=== PATIENT | female | born 1985 | race Caucasian/White ===

== ENCOUNTER 2021-02-01 12:33 | Emergency (ER) | payer OTHER ==
[2021-02-01 13:16] LABS: BASOPHILS % (AUTO) 0.3 %; EOSINOPHILS # (AUTO) 0.2 10^3/uL (0.0-0.7); EOSINOPHILS % (AUTO) 3.5 %; HCT - HEMATOCRIT 41.6 % (37.0-47.0); LYMPHOCYTES # (AUTO) 2.8 10^3/uL (1.5-3.5); LYMPHOCYTES % (AUTO) 43.1 %; MEAN CORPUSCULAR HEMOGLOBIN 29.1 pg (27.0-31.0); MEAN CORPUSCULAR HGB CONC 33.7 g/dL (32.0-36.0); MEAN CORPUSCULAR VOLUME 86.5 fL (81.0-99.0); MEAN PLATELET VOLUME 8.6 fL (7.9-10.8); MONOCYTES # (AUTO) 0.4 10^3/uL (0.0-1.0); MONOCYTES % (AUTO) 6.3 %; NEUTROPHILS % (AUTO) 46.6 %; PLT - PLATELET COUNT 253 10^3/uL (130-450); RED BLOOD COUNT 4.81 10^6/uL (4.20-5.40); RED CELL DISTRIBUTION WIDTH 12.2 % (12.0-15.0); WHITE BLOOD COUNT 6.5 x10^3/uL (4.8-10.8)
[2021-02-01 13:30] LABS: ALBUMIN 4.7 g/dL (3.2-5.5); ALBUMIN/GLOBULIN RATIO 1.8 (1.0-2.2); BILIRUBIN,TOTAL 0.8 mg/dL (0.2-1.0); CALCIUM 9.4 mg/dL (8.5-10.3); CREATININE 0.9 mg/dL (0.4-1.0); POTASSIUM 3.8 mmol/L (3.5-5.0); TOTAL PROTEIN 7.3 g/dL (6.7-8.2)
[2021-02-01] MEDS ORDERED: KETOROLAC 60 MG/2 ML VIAL IM STA (14:43)
--- NOTE | 2021-02-01 14:46 | ED Physician Documentation ---
History of Present Illness - Stated complaint Stated Complaint: ABD PX - Chief complaint Chief Complaint: Abd Pain - History obtained from History obtained from: Patient - History of Present Illness Pain level max: 9 Pain level now: 4 - Additonal information Additional information: Patient is a 35-year-old female who presents to the emergency department with a sharp left lower pelvic pain today. This then turned into a dull aching pelvic pain. Rated as a 9 out of 10 max, currently 4 out of 10. Has never had similar symptoms previously. States she is currently on her menses. She denies any STD exposure. No vaginal discharge. Nothing makes it better. Worse with palpation. Has not taken anything for the pain. Review of Systems Constitutional: denies: Fever, Chills Respiratory: denies: Cough GI: reports: Nausea. denies: Vomiting, Diarrhea : denies: Dysuria, Frequency, Hesitancy, Now EGA Skin: denies: Rash Musculoskeletal: denies: Neck pain, Back pain Neurologic: denies: Headache PD PAST MEDICAL HISTORY - Past Medical History Past Medical History: Yes NURSING EDUCATION SPECIALIST: Ectopic , Miscarriage(s) - Past Surgical History Past Surgical History: No - Present Medications Home Medications: Ambulatory Orders Medication Instructions Recorded Confirmed Escitalopram [Lexapro] 10 mg PO DAILY 02/01/21 02/01/21 HYDROcod/ACETAM 5/325 [[place] 5/325] 1 - 2 ea PO Q6H PRN #12 tablet 02/01/21 Meloxicam [Mobic] 7.5 mg PO BID PRN #20 tablet 02/01/21 - Allergies Allergies/Adverse Reactions: Allergies Allergy/AdvReac Type Severity Reaction Status Date / Time No Known Drug Allergies Allergy Verified 02/01/21 12:57 - Social History Does the pt smoke?: No Smoking Status: Never smoker Does the pt drink ETOH?: No Does the pt have substance abuse?: No - Immunizations Immunizations are current?: Yes - POLST Patient has POLST: No PD ED PE NORMAL - Vitals Vital signs reviewed: Yes - General General: Alert and oriented X 3, No acute distress - HEENT HEENT: Moist mucous membranes - Neck Neck: Supple, no meningeal sign - Cardiac Cardiac: RRR - Respiratory Respiratory: No respiratory distress, Clear bilaterally - Abdomen Abdomen: Soft, Non distended, Other (TTP L Low pelvic, no peritoneal signs.) - Back Back: No CVA TTP, No spinal TTP - Derm Derm: Warm and dry, No rash - Extremities Extremities: No edema, No calf tenderness / cord - Neuro Neuro: Alert and oriented X 3 - Psych Psych: Normal mood, Normal affect Results - Vitals Vitals: Vital Signs - 24 hr 02/01/21 02/01/21 02/01/21 12:53 14:32 16:00 Temperature 36.5 C 37.2 C Heart Rate 63 65 61 Respiratory 14 17 Rate Blood Pressure 135/120 H 123/85 H 128/98 H O2 Saturation 100 100 99 Oxygen O2 Source Room air - Labs Labs: Laboratory Tests 02/01/21 02/01/21 02/01/21 13:12 13:12 15:42 WBC 6.5 RBC 4.81 Hgb 14.0 Hct 41.6 MCV 86.5 MCH 29.1 MCHC 33.7 RDW 12.2 Plt Count 253 MPV 8.6 Neut # (Auto) 3.0 Lymph # (Auto) 2.8 [place] # (Auto) 0.4 Eos # (Auto) 0.2 Baso # (Auto) 0.0 Absolute Nucleated RBC 0.00 Nucleated RBC % 0.0 Sodium 140 Potassium 3.8 Chloride 107 Carbon Dioxide 24 Anion Gap 9.0 BUN 11 Creatinine 0.9 Estimated GFR (MDRD) 72 L Glucose 95 Calcium 9.4 Total Bilirubin 0.8 AST 19 ALT 21 Alkaline Phosphatase 51 Total Protein 7.3 Albumin 4.7 Globulin 2.6 Albumin/Globulin Ratio 1.8 Lipase 26 Urine Color YELLOW Urine Clarity CLEAR Urine pH 6.0 Ur Specific [place] 1.020 Urine Protein NEGATIVE Urine Glucose (UA) NEGATIVE Urine Ketones NEGATIVE Urine Occult Blood NEGATIVE Urine Nitrite NEGATIVE Urine Bilirubin NEGATIVE Urine Urobilinogen 0.2 (NORMAL) Ur Leukocyte Esterase NEGATIVE Ur Microscopic Review NOT INDICATED Urine Culture Comments NOT INDICATED - Rads (name of study) pelvic US Radiology: Final report received, EMP read contemporaneously, See rad report (Small amount of free fluid in the right adnexa. Small fundal fibroid is slightly larger than the prior exam, now calcified ) PD MEDICAL DECISION MAKING - ED course Complexity details: reviewed results, re-evaluated patient, considered differential, d/w patient ED course: 35-year-old female with left-sided pelvic pain. History sounds consistent with a ruptured ovarian cyst. There is a small amount of free fluid in the right adnexa. No significant lab abnormalities. Pain well controlled. Patient declines a pelvic exam. We will trial her on pain medication for 24 to 48 hours and see how she progresses. Patient is very well-appearing, nontoxic. We will hold CT scan until all a trial of pain medication has been performed. Patient counseled regarding signs and symptoms for which I believe and urgent re- evaluation would be necessary. Patient with good understanding of and agreement to plan and is comfortable going home at this time This document was made in part using voice recognition software. While efforts are made to proofread this document, sound alike and grammatical errors may occur. Departure - Departure Disposition: Home, Self Care Clinical Impression: Pelvic pain Ovarian cyst Qualifiers: Laterality: unspecified laterality Qualified Code(s): N83.209 - Unspecified ovarian cyst, unspecified side Condition: Good Instructions: ED Cyst Ovarian, ED Pelvic Pain [facility] Follow-Up: your,doctor in 3-4 days if not better. [Other] Prescriptions: Meloxicam [Mobic] 7.5 mg PO BID PRN #20 tablet PRN Reason: Pain HYDROcod/ACETAM 5/325 [[place] 5/325] 1 - 2 ea PO Q6H PRN #12 tablet PRN Reason: Pain Comments: Follow-up with your doctor for further care. Return if you worsen. You should have a repeat ultrasound with about 6 weeks to ensure resolution of the right- sided ovarian cyst. This should improve over the next 1 to 2 days. I am prescribing a short course of narcotic pain medication for you. These are p otentially dangerous and addictive medications that should be used carefully. These medications may constipate you. Take an [id number] stool softener (docusate) twice daily with plenty of water while taking these medications. If you go 24 hours without a bowel movement, take [id number] miralax, per package instructions. Do not drink or drive while taking these medications. If you received narcotic or sedating medications while in the emergency department, do not drive for 24 hours. Store this medication in a safe, secure place and out of reach of children. It is a violation of federal law to give or sell this medication to another person or to use in a manner other than prescribed. The ED will not refill narcotic prescriptions, including prescriptions lost or stolen. To dispose of unwanted medications: 1. [facility] at [address] in [place] has a medication drop box. They accept prescription medications (in pill form) Saturday through Saturday 9:00 a.m. to 5:00 p.m. 2. The [facility] accepts prescription medications (in pill form only) for disposal year round. Call for more informat ion. 3. Contact the [facility] for the next [facility] sponsored prescription drug collection event. , [phone], or [phone]; Discharge Date/Time: 02/01/21 16:48
[2021-02-01 16:00] LABS: BILIRUBIN,URINE NEGATIVE (NEGATIVE); GLUCOSE, URINE (UA) NEGATIVE (NEGATIVE); KETONES,URINE (UA) NEGATIVE (NEGATIVE); LEUKOCYTE ESTERASE, URINE NEGATIVE (NEGATIVE); NITRITE,URINE NEGATIVE (NEGATIVE); OCCULT BLOOD,URINE NEGATIVE (NEGATIVE); PROTEIN,URINE NEGATIVE (NEGATIVE); UROBILINOGEN,URINE 0.2 (NORMAL) E.U./dL (NORMAL)
[2021-02-01 16:03] LABS: CLARITY,URINE CLEAR (CLEAR)
[2021-02-01 16:07] VITALS: BP 128/98
[2021-02-01] MEDS ORDERED: HYDROcod/ACETAM 5/325 MG TABLET PO STA (16:13)
[2021-02-01] MEDS ORDERED: ONDANSETRON ODT 4 MG TABLET TL STA (16:13)
--- NOTE | 2021-02-01 17:54 | Ultrasound Report ---
PROCEDURE: Pelvic w/Transvag+Doppler Comp INDICATIONS: pelvic pain, L TECHNIQUE: Real-time scanning was performed of the pelvic organs, with image documentation. Additional endovagi nal scanning was necessary due to incomplete visualization of the adnexal and endometrial structures by transabdominal scanning. COMPARISON: 08/24/2012 FINDINGS: Small amount of free fluid in the right adnexa. Uterus: Uterus is normal in size at 11.8 x 4.6 x 6.1 cm. The endometrium measures 3 mm in combined thickness. Small myometrial fibroids is noted. First on the left posterior myometrium measures 9 x 1 0 mm it. Second on the right fundal myometrium measures 2.0 x 1.7 x 1.8 cm, previously 1.6 x 1.2 x 1. 4 cm. Shadowing calcification noted, new from the prior. Ovaries: Both ovaries appropriate in size and vascularity. IMPRESSION: Small amount of free fluid in the right adnexa. Small fundal fibroid is slightly larger than the prior exam, now calcified Reviewed by: Pelon Elaine MD on 02/01/2021 4:53 PM AKDT Approved by: Pelon Elaine MD on 02/01/2021 4:53 PM AKDT Station ID: [id number]
== END 2021-02-01 16:48 | disposition home or self-care (01) ==
LOC: ED 12:33
DX: N83.201 Unspecified ovarian cyst, right side (principal)
CPT/HCPCS: 36415; 76830; 76856; 80053; 81003; 83690; 85025; 93975; 96372; 99284; A9270; Q0162; 81001; 87086

== ENCOUNTER 2023-04-24 18:58 | Emergency (ER) | payer OTHER ==
[2023-04-24] MEDS ORDERED: KETOROLAC 30 MG/ML VIAL IVP STA (20:48)
[2023-04-24] MEDS ORDERED: DROPERIDOL 5 MG/2 ML VIAL IVP STA (20:48)
[2023-04-24] MEDS ORDERED: SODIUM CHLORIDE 0.9% 1,000 ML IV STA (20:49)
--- NOTE | 2023-04-24 21:33 | ED Physician Documentation ---
History of Present Illness - Stated complaint Stated Complaint: ALVAREZ/DIZZY/BLURRY VISION/VOMIT - Chief complaint Chief Complaint: Heent - History obtained from History obtained from: Patient, Family - History of Present Illness Timing: Today Pain level max: 9 Pain level now: 9 - Additonal information Additional information: 37-year-old female with a history of migraine headaches presents with a left- sided headache that started today. Worse with light and sound. Better with a dark room. No fevers. No chills. No neurological deficits. No neck pain. No trauma. Gradual in onset. Review of Systems Constitutional: denies: Fever, Chills Eyes: reports: Photophobia Nose: denies: Rhinorrhea / runny nose, Congestion Respiratory: denies: Cough GI: denies: Nausea, Vomiting, Diarrhea : denies: Now EGA Skin: denies: Rash Musculoskeletal: denies: Neck pain, Back pain Neurologic: denies: Headache PD PAST MEDICAL HISTORY - Past Medical History HEALTH INFORMATION CLERK: Ectopic , Miscarriage(s) - Past Surgical History Past Surgical History: No - Present Medications Home Medications: Ambulatory Orders Medication Instructions Recorded Confirmed Escitalopram [Lexapro] 10 mg PO DAILY 02/01/21 04/24/23 HYDROcod/ACETAM 5/325 [[place] 5/325] 1 - 2 ea PO Q6H PRN #12 tablet 02/01/21 Meloxicam [Mobic] 7.5 mg PO BID PRN #20 tablet 02/01/21 - Allergies Allergies/Adverse Reactions: Allergies Allergy/AdvReac Type Severity Reaction Status Date / Time No Known Drug Allergies Allergy Verified 04/24/23 19:16 - Social History Does the pt smoke?: No Smoking Status: Never smoker Does the pt drink ETOH?: No Does the pt have substance abuse?: No - Immunizations Immunizations are current?: Yes - POLST Patient has POLST: No PD ED PE NORMAL - Vitals Vital signs reviewed: Yes - General General: Alert and oriented X 3, No acute distress - HEENT HEENT: Atraumatic, PERRL, EOMI, Moist mucous membranes - Neck Neck: Supple, no meningeal sign - Cardiac Cardiac: RRR, Strong equal pulses - Respiratory Respiratory: No respiratory distress, Clear bilaterally - Abdomen Abdomen: Soft, Non tender, Non distended - Derm Derm: Warm and dry - Extremities Extremities: No edema - Neuro Neuro: Alert and oriented X 3, field education coordinator 2-12 intact, No motor deficit, No sensory deficit, Normal speech Eye Opening: Spontaneous Motor: Obeys Commands Verbal: Oriented GCS Score: 15 - Psych Psych: Normal mood, Normal affect Results - Vitals Vitals: Vital Signs - 24 hr 04/24/23 04/24/23 04/24/23 19:01 20:50 21:49 Temperature 36.7 C 36.8 C Heart Rate 94 74 76 Respiratory 17 16 16 Rate Blood Pressure 137/95 H 134/93 H 138/88 H O2 Saturation 100 99 100 Oxygen O2 Source Room air - EKG (time done) 1911 EKG releavant findings:: EKG personally interpreted by author of this note. Relevant findings are: Rate: Rate (enter#) (91) Rhythm: NSR [place]: Normal Intervals: Normal [place] QRS: Normal Ischemia: Normal ST segments PD Medical Decision Making - ED course Complexity details: re-evaluated patient, considered differential, d/w patient ED course: Patient with what appears to be a migraine headache. No evidence of subarachnoid hemorrhage or tumor. No indication for emergent neuroimaging. She was given IV Toradol and IV droperidol. Headache fully resolved. Patient asymptomatic. We will have her follow-up with her PCP for further care. GCS 15. No focal neurological deficits. Patient counseled regarding signs and symptoms for which I believe and urgent re-evaluation would be necessary. Patient with good understanding of and agreement to plan and is comfortable going home at this time This document was made in part using voice recognition software. While efforts are made to proofread this document, sound alike and grammatical errors may occur. Departure - Departure Disposition: 01 Home, Self Care Clinical Impression: Migraine Qualifiers: Migraine type: unspecified Status migrainosus presence: without status migrainosus Intractability: not intractable Qualified Code(s): G43.909 - Migraine, unspecified, not intractable, without status migrainosus Condition: Good Instructions: ED Headache Migraine Follow-Up: LIZETH JACKSON DO [Primary Care Provider] - Comments: You were given Toradol and droperidol for your headache tonight and your headache is resolved. Please follow-up with your doctor for further care. Return if you worsen Forms: PCP List Discharge Date/Time: 04/24/23 21:54
[2023-04-24 21:52] VITALS: BP 138/88; O2SAT 100
== END 2023-04-24 21:54 | disposition home or self-care (01) ==
LOC: ED 18:58
DX: G43.909 Migraine, unspecified, not intractable, without status migrainosus (principal); Z79.899 Other long term (current) drug therapy
CPT/HCPCS: 93005; 96374; 96375; 99284

== ENCOUNTER 2023-10-16 16:39 | Emergency (ER) | payer OTHER ==
[2023-10-16 16:56] VITALS: BP 141/92; O2SAT 99
== END 2023-10-16 17:30 | disposition left against medical advice (07) ==
LOC: ED 16:39
DX: Z53.21 Procedure and treatment not carried out due to patient leaving prior to being seen by health care provider (principal)